=== PATIENT | male | born 1980 | race American Indian/Alaskan Native ===

== ENCOUNTER 2018-01-30 10:06 | Inpatient (IN) | payer OTHER ==
--- NOTE | 2018-01-30 11:08 | Cat Scan Report ---
HEAD CT WITHOUT CONTRAST INDICATION: Neurologic deficits less than 6 hours or symptoms present upon awakening. 98N. COMPARISON: None similar. FINDINGS: Noncontrast head CT demonstrates symmetric ventricles and sulci without acute or recent infarct, hemorrhage, mass effect or midline shift. No abnormal extra-axial fluid collections. Posterior fossa structures and basilar cisterns are within normal limits. Severe bilateral ethmoid with mild bilateral image maxillary, frontal and sphenoid sinus mucosal thickening. Clear temporal bone/mastoid air cells, the mastoid tips not well pneumatized. Intact calvarium. Normal scalp. Small radiopaque dental fillings. CONCLUSION: No acute intracranial CT abnormality with pansinusitis, as above. MRI is more sensitive for detection of acute infarct and may be useful for further evaluation in the setting of a focal neurologic deficit. I phoned the above results to Dr. Marquez in the ER, 10:55 AM, 01/30/2018. Thank you for the opportunity to participate in this patient's care.
[2018-01-30] MEDS ORDERED: NACL 0.9% 1000 ML 1,000 ML ONE (11:15)
[2018-01-30 11:25] LABS: Basophils % (Auto) 0.8 % (0.0-1.8); Eosinophils # (Auto) 0.7 K/mm3 (0.0-0.4); Eosinophils % (Auto) 14.7 % (0.0-4.3); Hematocrit 42.2 % (35.5-45.6); Hemoglobin 14.5 gm/dl (11.8-15.2); Lymphocytes # (Auto) 1.6 K/mm3 (1.2-5.4); Lymphocytes % (Auto) 32.2 % (13.4-35.0); Mean Corpuscular HGB Conc 34 % (32-34); Mean Corpuscular Hemoglobin 32 pg (28-32); Mean Corpuscular Volume 93 fl (84-94); Monocytes # (Auto) 0.7 K/mm3 (0.0-0.8); Monocytes % (Auto) 13.3 % (0.0-7.3); Platelet Count 247 K/mm3 (140-440); Red Blood Count 4.52 M/mm3 (3.65-5.03)
[2018-01-30] MEDS ORDERED: ACTIVASE ONE (11:25)
[2018-01-30 11:34] LABS: INR 1.03 (0.87-1.13)
[2018-01-30 11:35] LABS: Partial Thromboplastin Time 32.9 Sec. (24.2-36.6)
[2018-01-30 11:40] LABS: BUN/Creatinine Ratio 9; Blood Urea Nitrogen 8 mg/dL (9-20); Calcium 9.3 mg/dL (8.4-10.2); Hemolysis Index 11
[2018-01-30] MEDS ORDERED: K-DUR PO ONE (12:07)
--- NOTE | 2018-01-30 12:14 | Emergency Department Report ---
ED Neuro Deficit HPI - General Chief Complaint: Neuro Symptoms/Deficit Stated Complaint: LEFT ARM NUMBNESS Time Seen by Provider: 01/30/18 11:26 Source: patient, family Mode of arrival: Ambulatory Limitations: No Limitations - History of Present Illness Initial Comments: 37-year-old male arrives as a code stroke. His last known well time is listed as 945. He states that he had numbness to involve his entire left side of his body essentially perhaps sparing the forehead. He stated that he had been using "recreational drugs". He states that he bit down on his tongue and it felt numb. He stated he felt some left arm and left leg decreased sensation. He denied any weakness. The stroke nurse thought that his leg appeared shaky on movement and that as ataxia. The patient did not report any difficulty in walking or with his coordination to be. He did not complain of headache. He states the symptoms were improving by the time of my encounter. -: Sudden Location: left face, left arm, left leg Presenting Symptoms: Present: Weak/Paralyzed One Side (change in sensation) History of same: No Severity: mild, moderate Quality: numb (Toungue numbness and change in sensation left sides. Spared Forehead) Improves With: none Worsens With: none On Anticoagulants: No Context: other (cocaine abuse) Associated Symptoms: denies other symptoms Treatments Prior to Arrival: none - Related Data Home Medications: Previous Rx's Medication Instructions Recorded Last Taken Type Albuterol Sulfate [Ventolin HFA] 1 - 2 puff INHALATION Q4H PRN #1 10/22/13 Unknown Rx [email or web address] Allergies/Adverse Reactions: Allergies Allergy/AdvReac Type Severity Reaction Status Date / Time No Known Allergies Allergy Unverified 10/22/13 19:57 ED Review of Systems ROS: Stated complaint: LEFT ARM NUMBNESS Other details as noted in HPI Constitutional: denies: chills, fever Eyes: denies: eye pain, eye discharge, vision change ENT: denies: ear pain, throat pain Respiratory: denies: cough, shortness of breath, wheezing Cardiovascular: denies: chest pain, palpitations Endocrine: no symptoms reported Gastrointestinal: denies: abdominal pain, nausea, diarrhea Genitourinary: denies: urgency, dysuria Musculoskeletal: denies: back pain, joint swelling, arthralgia Skin: denies: rash, lesions Neurological: numbness. denies: headache, weakness, paresthesias Psychiatric: denies: anxiety, depression Hematological/Lymphatic: denies: easy bleeding, easy bruising ED Past Medical Hx - Past Medical History Previous Medical History?: Yes Hx Asthma: Yes Additional medical history: "blood clots in colon" - Surgical History Past Surgical History?: Yes Additional Surgical History: colonoscopy - Social History Smoking Status: Current Every Day Smoker Substance Use Type: Alcohol - Medications Home Medications: Home Medications Medication Instructions Recorded Confirmed Last Taken Type Albuterol Sulfate [Ventolin HFA] 1 - 2 puff INHALATION Q4H PRN #1 10/22/1301/30 Unknown Rx [email or web address] ED Neuro Physical Exam - General Limitations: No Limitations General appearance: alert, in no apparent distress Suspected Stroke: No (stroke is deemed very unlikely) - Head Head exam: Present: atraumatic, normocephalic - Eye Eye exam: Present: normal appearance. Absent: scleral icterus - ENT ENT exam: Present: mucous membranes moist - Neck Neck exam: Present: normal inspection. Absent: tenderness, meningismus - Respiratory Respiratory exam: Present: normal lung sounds bilaterally. Absent: respiratory distress - Cardiovascular Cardiovascular Exam: Present: regular rate, normal rhythm. Absent: systolic murmur, diastolic murmur, rubs, gallop - GI/Abdominal GI/Abdominal exam: Present: soft, normal bowel sounds. Absent: distended, tenderness, guarding, rebound, rigid - Rectal Rectal exam: Present: deferred - Extremities Exam Extremities exam: Present: normal inspection - Back Exam Back exam: Present: normal inspection - Neurological Exam Neurological exam: Present: alert, oriented X3, CN II-XII intact. Absent: motor sensory deficit - NIHSS Assessment Interval: Baseline 1a. Level of Consciousness: alert 1b. LOC Questions: answers correctly 1c. LOC Commands: performs tasks correctly 2. Best Gaze: normal 3. Visual: no visual loss 4. Facial Palsy: normal symmetrical movement 5b. Motor Arm Right: no drift 5a. Motor Arm Left: no drift 6a. Motor Leg Left: no drift 6b. Motor Leg Right: no drift 7. Limb Ataxia: absent 8. Sensory: normal (patient had no sensory loss. He had slight subjective fine touch testing difference left versus right side) 9. Best Language: no aphasia 10. Dysarthria: normal 11. Extinction/Inattention: no abnormality Total Score: 0 Stroke Severity: No Stroke Symptoms - Psychiatric Psychiatric exam: Present: normal affect, normal mood - Skin Skin exam: Present: warm, dry, intact, normal color. Absent: rash ED Course Vital Signs 01/30/18 01/30/18 01/30/18 10:27 10:45 11:00 Temperature 98.2 F 36.8 F L Pulse Rate 96 H 94 H 88 Respiratory 18 16 18 Rate Blood Pressure 117/79 121/88 Blood Pressure 121/88 [Right] O2 Sat by Pulse 99 99 99 Oximetry 01/30/18 01/30/18 01/30/18 11:45 13:00 14:00 Temperature Pulse Rate 89 83 70 Respiratory 19 16 17 Rate Blood Pressure 115/77 Blood Pressure 126/90 117/68 [Right] O2 Sat by Pulse 100 99 Oximetry 01/30/18 01/30/18 01/30/18 15:00 16:00 17:00 Temperature Pulse Rate 72 84 82 Respiratory 17 13 19 Rate Blood Pressure 128/82 118/75 119/62 Blood Pressure [Right] O2 Sat by Pulse 100 100 100 Oximetry 01/30/18 18:00 Temperature Pulse Rate 84 Respiratory 26 H Rate Blood Pressure 123/67 Blood Pressure [Right] O2 Sat by Pulse 99 Oximetry - Reevaluation(s) Reevaluation #1: I believe was entirely possible that the patient's numbness was secondary to the local anesthetic effect of cocaine. As far as his hemisensory symptoms, they were rapidly resolving at the time of my encounter. A CT of his head was negative. He is not a candidate for TPA based on improving subjective sensory symptoms with the actual tongue numbness as above indicated. He had an emergency MR studies which were negative. He was admitted to the hospital by Dr. Villarreal for further care and evaluation/observation. 01/30/18 19:58 - Lab Data Result diagrams: 01/30/18 Unknown 01/30/18 Unknown Lab Results 01/30/18 01/30/18 Range/Units 10:59 12:42 POC Glucose 86 (70-105) Urine Opiates Screen Presumptive negative Urine Methadone Screen Presumptive negative Ur Barbiturates Screen Presumptive negative Ur Phencyclidine Scrn Presumptive negative Ur Amphetamines Screen Presumptive negative U Benzodiazepines Scrn Presumptive negative Urine Cocaine Screen Presumptive positive U Marijuana (THC) Screen Presumptive negative Drugs of Abuse Note Disclamer - EKG Data -: EKG Interpreted by Sc EKG shows normal: sinus rhythm, axis, intervals, QRS complexes, ST-T waves Rate: normal Interpretation: no acute changes - Radiology Data Radiology results: report reviewed Radiology Impressions Echocardiogram 01/30/18 00:00 Transthoracic Echocardiogram Indication: Stroke BP: 117/68 HR: 68 Conclusions *Global left ventricular systolic function is normal. *The estimated ejection fraction is 50-55%. *Mild concentric left ventricular hypertrophy is observed. *There is mild mitral valve prolapse. *There is mild mitral regurgitation. *There is mild tricuspid regurgitation. Findings Left Ventricle: The left ventricular chamber size is normal. Mild concentric left ventricular hypertrophy is observed. Global left ventricular systolic function is normal. The estimated ejection fraction is 50-55%. Normal left ventricular diastolic filling is observed. Left Atrium: The left atrial chamber size is normal. Right Ventricle: The right ventricular cavity size is normal. The right ventricular global systolic function is normal. Right Atrium: The right atrial cavity size is normal. Aortic Valve: The aortic valve is trileaflet. The aortic valve leaflets are mildly thickened. There is trace of aortic regurgitation. There is no evidence of aortic stenosis. Mitral Valve: The mitral valve leaflets are mildly thickened. There is mild mitral valve prolapse. There is mild mitral regurgitation. There is no evidence of mitral stenosis. Tricuspid Valve: The tricuspid valve leaflets are normal. There is mild tricuspid regurgitation. No pulmonary hypertension is noted. Pulmonic Valve: The pulmonic valve appears normal. There is trace pulmonic regurgitation. Pericardium: There is no pericardial effusion. Aorta: There is no dilatation of the ascending aorta. There is no dilatation of the aortic root. Venous: The inferior vena cava appears normal in size. Contrast: Intravenous agitated saline contrast was used to assess intracardiac shunting. Measurements Chambers MM Name Value Normal Range Ao root diameter (MM) 2.7 cm (2 - 3.7) Chambers 2D Name Value Normal Range RVIDd (AP) 2D 2.99 cm (0.9 - 2.6) IVSd (2D) 0.77 cm (0.6 - 1.1) LVPWd (2D) 0.78 cm (0.6 - 1.1) IVS:LVPW ratio (2D) 0.99 ratio - LVIDd (2D) 4.4 cm (3.7 - 5.6) LVIDs (2D) 2.96 cm (2 - 3.8) LV FS (Teichholz) (2D) 32.7 % - LV FS (cube) (2D) 32.7 % - EF Teichholz (2D) 61.3 % - Ao root diameter (2D) 3.3 cm (2 - 3.7) LA dimension (AP) 2D 2.7 cm (1.9 - 4) LA:Ao ratio (2D) 0.82 ratio - Volumes/Mass Name Value Normal Range LA ESV SP 4CH (MOD) 22 ml - LA ESV SP 2CH (MOD) 35 ml - LA ESV BP (MOD) 30 ml - LA ESV BP (MOD) index 15.3 ml/m2 - LV EDV SP 4CH (MOD) 52 ml - LV ESV SP 4CH (MOD) 22 ml - EF SP 4CH (MOD) 58 % - LV EDV SP 2CH (MOD) 57 ml - LV ESV SP 2CH (MOD) 25 ml - EF SP 2CH (MOD) 56 % - LV EDV BP 55 ml - LV ESV BP 24 ml - BP EF (MOD) 56 % - Diastolic/Systolic Function Name Value Normal Range MV E-wave Vmax 0.67 m/sec - MV A-wave Vmax 0.46 m/sec - MV E:A ratio 1.5 ratio - LV septal e' Vmax 0.11 m/sec - LV lateral e' Vmax 0.13 m/sec - LV E:e' septal ratio 6.3 ratio - LV E:e' lateral ratio 5.1 ratio - Aortic Valve Name Value Normal Range AV VTI 28.3 cm - AV mean gradient 3 mmHg - LVOT diameter 2 cm - LVOT VTI 24.6 cm - LVOT mean gradient 3 mmHg - SV LVOT 77 ml - JEANNETTE (continuity VTI) 2.73 cm2 - Tricuspid Valve Name Value Normal Range TR Vmax 1.85 m/sec - TR peak gradient 14 mmHg - RAP 3 mmHg - RVSP 17 mmHg - Pulmonic Valve/Qp:Qs Name Value Normal Range PV Vmax 0.75 m/sec - PV peak gradient 2 mmHg - OR end-diastolic Vmax 0.91 m/sec - PV acceleration time 183 msec - - Thrombolytic Inclusion/Exclusion Thrombolytic Contraindications: Rapidily Improving s/s Critical care attestation.: If time is entered above; I have spent that time in minutes in the direct care of this critically ill patient, excluding procedure time. 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
[2018-01-30 12:28] LABS: Creatine Kinase MB 4.6 ng/mL (0.0-4.0)
--- NOTE | 2018-01-30 12:40 | Magnetic Resonance Report ---
MRI BRAIN WITHOUT CONTRAST INDICATION: Stroke. COMPARISON: Head CT from earlier today. FINDINGS: Noncontrast multiplanar and multisequence MRI of the brain demonstrates normal ventricles and sulci without acute infarct, hemorrhage, mass effect or midline shift. No abnormal extra-axial masses or fluid collections. Normal major intracranial vascular flow voids. Normal posterior fossa structures with symmetric seventh and eighth nerve complexes. Symmetric, grossly unremarkable eye globes. Normal midline structures without evidence of Chiari malformation. Mild rightward nasal septal bowing. Extensive bilateral ethmoid and mild bilateral imaged maxillary, sphenoid and frontal sinus mucosal thickening noted. Clear mastoid air cells with their tips not well pneumatized. CONCLUSION: No acute intracranial MRI abnormality with pansinusitis again noted, as described. Thank you for the opportunity to participate in this patient's care.
--- NOTE | 2018-01-30 12:41 | Magnetic Resonance Report ---
MRA HEAD WITHOUT CONTRAST INDICATION: Stroke. COMPARISON: None similar. FINDINGS: MRA of the head performed without intravenous contrast and demonstrates no evidence of flow-limiting stenosis, occlusion or vascular malformation. Please note that detection of aneurysms less than 5 mm is limited on this exam. CONCLUSION: Normal study of the [place]. Thank you for the opportunity to participate in this patient's care.
--- NOTE | 2018-01-30 12:59 | History and Physical Report ---
<CESIA BLUNT - Last Filed: 01/30/18 16:39> Past History Past Medical History: other (asthma) Past Surgical History: No surgical history, Other (reviewed) Social history: smoking Medications and Allergies Allergies Allergy/AdvReac Type Severity Reaction Status Date / Time No Known Allergies Allergy Unverified 10/22/13 19:57 Home Medications Medication Instructions Recorded Confirmed Last Taken Type Albuterol Sulfate [Ventolin HFA] 1 - 2 puff INHALATION Q4H PRN #1 10/22/1301/30 Unknown Rx [email or web address] Active Meds: Active Medications Aspirin (Aspirin) 325 mg PO QDAY JOHN Sodium Chloride (Sodium Chloride Flush Syringe 10 Ml) 10 ml IV PRN PRN PRN Reason: LINE FLUSH Exam - Constitutional Vitals: Temp Pulse Resp BP Pulse Ox 36.8 F L 83 16 117/68 100 01/30/18 10:45 01/30/18 13:00 01/30/18 13:00 01/30/18 13:00 01/30/18 13:00 Results - Labs CBC & Chem 7: 01/30/18 Unknown 01/30/18 Unknown Labs: Abnormal lab results 01/30/18 01/30/18 01/30/18 Range/Units Unknown Unknown Unknown RDW 13.0 L (13.2-15.2) % [place] % (Auto) 13.3 H (0.0-7.3) % Eos % (Auto) 14.7 H (0.0-4.3) % Eos # 0.7 H (0.0-0.4) K/mm3 Seg Neutrophils % 39.0 L (40.0-70.0) % Sodium 136 L (137-145) mmol/L Potassium 3.4 L (3.6-5.0) mmol/L Chloride 96.9 L (98-107) mmol/L BUN 8 L (9-20) mg/dL Total Creatine Kinase 970 H (55-170) units/L CK-MB (CK-2) 4.6 H (0.0-4.0) ng/mL <BETSY MOY - Last Filed: 01/30/18 16:49> History of Present Illness Chief complaint: Im weak on my left side History of present illness: 37 YO Male with Asthma, Nicotine Dependence presents to ED for evaluation. Pt states that he experienced numbness on the left side of his body. Pt was in his usual state of health at 0945 hrs. Pt was subsequently transported to [facility] by his family. Pt seen and evaluated in ED and a code stroke was called. Pt denies fever, chills, CP, Palpitations, NVD, Syncope, BRBPR, Unintentional weight loss,night sweats, bone pain. Pt admitted to telemetry and initiated on stroke protocol. Past History Past Medical History: other Past Surgical History: No surgical history, Other Social history: smoking Review of Systems Constitutional: no weight loss, no weight gain, no fever, no chills Ears, nose, mouth and throat: no ear pain, no ear discharge, no tinnitis, no decreased hearing, no nose pain, no nasal congestion, no nasal discharge Cardiovascular: no chest pain, no orthopnea, no palpitations, no rapid/ irregular heart beat, no edema, no syncope, no lightheadedness Respiratory: no cough, no cough with sputum, no excessive sputum, no hemoptysis , no shortness of breath Gastrointestinal: no abdominal pain, no nausea, no vomiting, no diarrhea, no constipation Genitourinary Male: no dysuria, no hematuria, no flank pain, no discharge, no urinary frequency, no urinary hesitancy Rectal: no pain, no incontinence, no bleeding Musculoskeletal: no neck stiffness, no neck pain, no shooting arm pain, no arm numbness/tingling, no low back pain, no shooting leg pain Integumentary: no rash, no pruritis, no redness, no sores, no wounds, no jaundice Neurological: weakness, change in speech, no seizures, no syncope, no tremors, no ataxia Psychiatric: no anxiety, no memory loss, no change in sleep habits, no sleep disturbances, no insomnia, no hypersomnia, no change in appetite, no change in libido Endocrine: no cold intolerance, no heat intolerance, no polyphagia, no excessive thirst, no polydipsia, no polyuria, no nocturia Hematologic/Lymphatic: no easy bruising, no easy bleeding, no lymphadenopathy, no lymphedema Allergic/Immunologic: no urticaria, no allergic rhinitis, no wheezing, no persistent infections, no anaphylaxis, no angioedema Exam - Constitutional Vitals: Temp Pulse Resp BP Pulse Ox 36.8 F L 89 19 126/90 99 01/30/18 10:45 01/30/18 11:45 01/30/18 11:45 01/30/18 11:45 01/30/18 11:00 General appearance: Present: no acute distress, well-nourished - EENT Eyes: Present: PERRL ENT: hearing intact, clear oral mucosa - Neck Neck: Present: supple, normal ROM - Respiratory Respiratory effort: normal Respiratory: bilateral: CTA - Cardiovascular Heart Sounds: Present: S1 & S2. Absent: rub, click - Extremities Extremities: pulses symmetrical, No edema Peripheral Pulses: within normal limits - Abdominal General gastrointestinal: Present: soft, non-tender, non-distended, normal bowel sounds Male genitourinary: Present: normal - Integumentary Integumentary: Present: clear, warm, dry - Musculoskeletal Musculoskeletal: gait normal, strength equal bilaterally - Psychiatric Psychiatric: appropriate mood/affect, intact judgment & insight - Neurologic Neurologic: CNII-XII intact, moves all extremities Results - Labs CBC & Chem 7: 01/30/18 Unknown 01/30/18 Unknown Labs: Abnormal lab results 01/30/18 01/30/18 01/30/18 Range/Units Unknown Unknown Unknown RDW 13.0 L (13.2-15.2) % [place] % (Auto) 13.3 H (0.0-7.3) % Eos % (Auto) 14.7 H (0.0-4.3) % Eos # 0.7 H (0.0-0.4) K/mm3 Seg Neutrophils % 39.0 L (40.0-70.0) % Sodium 136 L (137-145) mmol/L Potassium 3.4 L (3.6-5.0) mmol/L Chloride 96.9 L (98-107) mmol/L BUN 8 L (9-20) mg/dL CK-MB (CK-2) 4.6 H (0.0-4.0) ng/mL Assessment and Plan - Patient Problems (1) CVA (cerebral vascular accident) Current Visit: Yes Status: Acute Qualifiers: Laterality of affected vessel: unspecified Plan to address problem: Stroke Protocol: CT Head, MRI Brain, MRA Brain, Echo, Carotid Doppler, PT/OT/ Speech, antiplatelet therapy (2) Cocaine abuse Current Visit: Yes Status: Acute Plan to address problem: Pt counseled regarding cessation. (3) DVT prophylaxis Current Visit: Yes Status: Acute Plan to address problem: scd to BLE while in bed
[2018-01-30 13:17] LABS: Amphetamine Screen,Urine PRESUMPTIVE NEGATIVE; Benzodiazepines Screen,Urine PRESUMPTIVE NEGATIVE; Cannabinoid Screen,Urine PRESUMPTIVE NEGATIVE; Methadone Screen,Urine PRESUMPTIVE NEGATIVE; Opiate Screen,Urine PRESUMPTIVE NEGATIVE
--- NOTE | 2018-01-30 13:35 | XRay Report ---
CHEST ONE VIEW INDICATION: Hypertension. COMPARISON: 11/20/2011. FINDINGS: Portable, single, frontal chest radiograph demonstrates normal cardiomediastinal silhouette. Clear, well-expanded lungs. Unremarkable bones. Extrinsic EKG leads. CONCLUSION: No acute disease in the chest. Thank you for the opportunity to participate in this patient's care.
[2018-01-30 13:46] LABS: Cocaine Screen,Urine PRESUMPTIVE POSITIVE
[2018-01-30] MEDS ORDERED: SODIUM CHLORIDE FLUSH SYRINGE 10 ML IV PRN ×2 (14:06→17:20)
[2018-01-30] MEDS ORDERED: REGLAN PO PRN (17:20)
[2018-01-30] MEDS ORDERED: DULCOLAX PR PRN (17:20)
[2018-01-30] MEDS ORDERED: ZOFRAN IV PRN (17:20)
[2018-01-30] MEDS ORDERED: PHENERGAN PR PRN (17:20)
[2018-01-30] MEDS ORDERED: MILK OF MAGNESIA PO PRN (17:20)
[2018-01-30] MEDS ORDERED: PROVENTIL IH PRN (20:04)
[2018-01-31 07:03] LABS: Chol/HDL Ratio 2.07 %
[2018-01-31] MEDS: ASPIRIN PO SCH (10:57)
--- NOTE | 2018-01-31 11:17 | Progress Note ---
Assessment and Plan Assessment and plan: --Neuro symptoms/acute CVA Neuro workup is in progress, follow EEG neurology consult Physical therapy occupational therapy rehabilitation Aspirin and statin --Ongoing tobacco use; smoking cessation counseling done Advised nicotine patch as needed --Recreational drug use; cocaine Counseling done strongly advised to quit recreational drug patient verbalized understanding --History of rectal bleeding-; Nose the monitor H&H, GI consult for possible endoscopy --DVT prophylaxis; SCDs Patient's condition treatment plan discussed in detail with the patient and his mother at the bedside Also discussed with the nurse History Interval history: Patient seen and examined medical records reviewed Feels slightly better since admission still complains of left upper extremity weakness Neuro workup is in progress And also complains of rectal bleeding for the last couple of days, Complaints of generalized weakness Alert awake oriented 3 Not in acute distress Vital signs reviewed Hospitalist Physical - Constitutional Vitals: Temp Pulse Resp BP Pulse Ox 98.1 F 86 20 118/82 99 01/31/18 08:21 01/31/18 10:00 01/31/18 08:21 01/31/18 08:21 01/31/18 08:21 General appearance: Present: no acute distress, well-nourished - EENT Eyes: Present: PERRL, EOM intact - Neck Neck: Present: supple, normal ROM - Respiratory Respiratory effort: normal Respiratory: negative: rales, rhonchi, wheezing - Cardiovascular Rhythm: regular Heart Sounds: Present: S1 & S2 - Extremities Extremities: no ischemia, No edema - Abdominal General gastrointestinal: soft, non-tender, non-distended, normal bowel sounds - Integumentary Integumentary: Present: clear, warm - Psychiatric Psychiatric: appropriate mood/affect, cooperative - Neurologic Neurologic: CNII-XII intact, other (minimal weakness lt upper extremity) Results - Labs CBC & Chem 7: 01/30/18 Unknown 01/30/18 Unknown Labs: Laboratory Last Values WBC 5.0 K/mm3 (4.5-11.0) 01/30/18 Unknown RBC 4.52 M/mm3 (3.65-5.03) 01/30/18 Unknown Hgb 14.5 gm/dl (11.8-15.2) 01/30/18 Unknown Hct 42.2 % (35.5-45.6) 01/30/18 Unknown MCV 93 fl (84-94) 01/30/18 Unknown MCH 32 pg (28-32) 01/30/18 Unknown MCHC 34 % (32-34) 01/30/18 Unknown RDW 13.0 % (13.2-15.2) L 01/30/18 Unknown Plt Count 247 K/mm3 (140-440) 01/30/18 Unknown Lymph % (Auto) 32.2 % (13.4-35.0) 01/30/18 Unknown [place] % (Auto) 13.3 % (0.0-7.3) H 01/30/18 Unknown Eos % (Auto) 14.7 % (0.0-4.3) H 01/30/18 Unknown Baso % (Auto) 0.8 % (0.0-1.8) 01/30/18 Unknown Lymph # 1.6 K/mm3 (1.2-5.4) 01/30/18 Unknown [place] # 0.7 K/mm3 (0.0-0.8) 01/30/18 Unknown Eos # 0.7 K/mm3 (0.0-0.4) H 01/30/18 Unknown Baso # 0.0 K/mm3 (0.0-0.1) 01/30/18 Unknown Seg Neutrophils % 39.0 % (40.0-70.0) L 01/30/18 Unknown Seg Neutrophils # 1.9 K/mm3 (1.8-7.7) 01/30/18 Unknown PT 14.0 Sec. (12.2-14.9) 01/30/18 Unknown INR 1.03 (0.87-1.13) 01/30/18 Unknown APTT 32.9 Sec. (24.2-36.6) 01/30/18 Unknown Thrombin Time 17.1 Sec. (15.1-19.6) 01/30/18 Unknown Sodium 136 mmol/L (137-145) L 01/30/18 Unknown Potassium 3.4 mmol/L (3.6-5.0) L 01/30/18 Unknown Chloride 96.9 mmol/L (98-107) L 01/30/18 Unknown Carbon Dioxide 26 mmol/L (22-30) 01/30/18 Unknown Anion Gap 17 mmol/L 01/30/18 Unknown BUN 8 mg/dL (9-20) L 01/30/18 Unknown Creatinine 0.9 mg/dL (0.8-1.5) 01/30/18 Unknown Estimated GFR > 60 ml/min 01/30/18 Unknown BUN/Creatinine Ratio 9 % 01/30/18 Unknown Glucose 84 mg/dL (75-100) 01/30/18 Unknown POC Glucose 86 (70-105) 01/30/18 10:59 Calcium 9.3 mg/dL (8.4-10.2) 01/30/18 Unknown Magnesium 1.90 mg/dL (1.7-2.3) 01/30/18 Unknown Total Creatine Kinase 970 units/L (55-170) H 01/30/18 Unknown CK-MB (CK-2) 4.6 ng/mL (0.0-4.0) H 01/30/18 Unknown CK-MB (CK-2) Rel Index 0.4 (0-4) 01/30/18 Unknown Troponin T < 0.010 ng/mL (0.00-0.029) 01/30/18 Unknown NT-Pro-B Natriuret Pep 19.03 pg/mL (0-450) 01/30/18 Unknown Triglycerides 71 mg/dL (2-149) 01/31/18 05:38 Cholesterol 141 mg/dL (50-199) 01/31/18 05:38 LDL Cholesterol Direct 79 mg/dL (50-130) 01/31/18 05:38 HDL Cholesterol 68 mg/dL (40-59) H 01/31/18 05:38 Cholesterol/HDL Ratio 2.07 % 01/31/18 05:38 Urine Opiates Screen Presumptive negative 01/30/18 12:42 Urine Methadone Screen Presumptive negative 01/30/18 12:42 Ur Barbiturates Screen Presumptive negative 01/30/18 12:42 Ur Phencyclidine Scrn Presumptive negative 01/30/18 12:42 Ur Amphetamines Screen Presumptive negative 01/30/18 12:42 U Benzodiazepines Scrn Presumptive negative 01/30/18 12:42 Urine Cocaine Screen Presumptive positive 01/30/18 12:42 U Marijuana (THC) Screen Presumptive negative 01/30/18 12:42 Drugs of Abuse Note Disclamer 01/30/18 12:42
[2018-01-31] MEDS ORDERED: K-DUR PO NR (12:00)
--- NOTE | 2018-01-31 13:25 | Consultation ---
History of Present Illness Consult date: 02/07/18 Requesting physician: CRISTIANE PAZ Reason for Consult: Acute CVA. Chief complaint: Left side weakness. History of present illness: 37 years old right handed male with a past medical history of asthma, presented for left side numbness, may be also left side weakness. He was admitted for acute CVA. He was out of windows for IV TPA or service mechanic thrombectomy. He still has these symptoms. He denied headache. He denied recently neck injury. He denied off balance, incontinency or loss control bowel. His fiance noted that he had left leg twitching when sleeping. Past History Past Medical History: other (asthema.) Past Surgical History: No surgical history, Other Social history: smoking, other (denied illicit drugs, drink beer daily.) Medications and Allergies Allergies Allergy/AdvReac Type Severity Reaction Status Date / Time No Known Allergies Allergy Unverified 10/22/13 19:57 Home Medications Medication Instructions Recorded Confirmed Last Taken Type Albuterol Sulfate [Ventolin HFA] 1 - 2 puff INHALATION Q4H PRN #1 10/22/1301/30 Unknown Rx [email or web address] Active Meds: Active Medications Albuterol (Proventil) 2.5 mg IH Q4HRT PRN PRN Reason: Shortness Of Breath Last Admin: 01/30/18 20:32 Dose: 2.5 mg Amoxicillin/Clavulanate Potassium (Augmentin 875 Mg) 1 each PO Q12HR [facility] Aspirin (Aspirin) 325 mg PO QDAY [facility] Last Admin: 01/31/18 10:57 Dose: Not Given Atorvastatin Calcium (Lipitor) 20 mg PO QHS JOHN Bisacodyl (Dulcolax) 10 mg VT QDAY PRN PRN Reason: Constipation Magnesium Hydroxide (Milk Of Magnesia) 30 ml PO Q4H PRN PRN Reason: Constipation Metoclopramide HCl (Reglan) 10 mg PO Q6H PRN PRN Reason: Nausea And Vomiting Ondansetron HCl (Zofran) 4 mg IV Q8H PRN PRN Reason: N/V unrelieved by Reglan Promethazine HCl (Phenergan) 25 mg VT Q6H PRN PRN Reason: Nausea And Vomiting Sodium Chloride (Sodium Chloride Flush Syringe 10 Ml) 10 ml IV PRN PRN PRN Reason: LINE FLUSH Sodium Chloride (Sodium Chloride Flush Syringe 10 Ml) 10 ml IV PRN PRN PRN Reason: LINE FLUSH Review of Systems All systems: negative (left side numbness and weakness.) Physical Examination - Vital Signs Vital Signs: Vital Signs Temp Pulse Resp BP Pulse Ox 98.2 F 96 H 18 117/79 99 01/30/18 10:27 01/30/18 10:27 01/30/18 10:27 01/30/18 10:27 01/30/18 10:27 - Constitutional General appearance: comfortable - EENT EENT: Present: ATNC, PERRL - Respiratory Respiratory: Present: lungs clear, normal breath sounds - Cardiovascular Cardiovascular: Present: regular rate, no murmurs Extremities: Present: no peripheral edema bilatateraly, no clubbing, cyanosis - Gastrointestinal Gastrointestinal: Present: soft, non-tender - Integumentary Integumentary: Present: normal - Neurologic Cranial nerve examination: PERRL, EOMI, V1/V2/V3 grossly intact, intact Speech examination: intact Sensorimotor examination: intact, other Detailed sensory examination: other (left side decreased senations.) Reflexes: 2+: ankle, bicep, knee, tricep - Assessment Assessment Interval: Baseline - Level of Consciousness 1a. Level of Consciousness: alert - LOC Questions 1b. LOC Questions: answers correctly - LOC Command 1c. LOC Commands: performs tasks correctly - Best Gaze 2. Best Gaze: normal - Visual 3. Visual: no visual loss - Facial Palsy 4. Facial Palsy: normal symmetrical movement - Motor Arm 5b. Motor Arm Right: no drift - Motor Leg 6a. Motor Leg Left: no drift - Limb Ataxia 7. Limb Ataxia: absent - Sensory 8. Sensory: normal (patient had no sensory loss. He had slight subjective fine touch testing difference left versus right side) - Best Language 9. Best Language: no aphasia - Dysarthria 10. Dysarthria: normal - Extinction and Inattention 11. Extinction/Inattention: no abnormality Results - Laboratory Findings CBC and BMP: 01/30/18 Unknown 01/30/18 Unknown Abnormal Lab Findings: Abnormal Labs 01/30/18 01/30/18 01/30/18 Unknown Unknown Unknown RDW 13.0 L [place] % (Auto) 13.3 H Eos % (Auto) 14.7 H Eos # 0.7 H Seg Neutrophils % 39.0 L Sodium 136 L Potassium 3.4 L Chloride 96.9 L BUN 8 L Total Creatine Kinase 970 H CK-MB (CK-2) 4.6 H HDL Cholesterol 01/31/18 05:38 RDW [place] % (Auto) Eos % (Auto) Eos # Seg Neutrophils % Sodium Potassium Chloride BUN Total Creatine Kinase CK-MB (CK-2) HDL Cholesterol 68 H Assessment and Plan 1. Acute onset left side weakness and numbness. Brain MRI without contrast and brain MRA negative. If he has CVA, NIHSS 3. 2. Out windows for IV TPA or service mechanic thrombecoty. B12, UDS, lipid profile, TSH. Echo, EF 50-55%. 3. Cervical DDD as differential. Cervical MRI without contrast. 4. His fiance noted that he had left leg twitching. Seizure as differential. EEG. 5. OT/PT, rehab and speech pathology. 6. Plan discussed with him and his mother at bed side. 7. Will follow up with you. 8. If D/C, F/U with neurology in 4-6 months.
[2018-01-31] MEDS: AUGMENTIN 875 MG PO SCH ×2 (14:02→22:18)
--- NOTE | 2018-01-31 22:01 | Consultation ---
Referring Physician: Lizzie Becker MD INDICATION: Rectal bleeding. HISTORY OF PRESENT ILLNESS: The patient is a 37-year-old black male with history of asthma, now being seen by GI for rectal bleeding. The patient presented and has been evaluated for CVA like symptoms. The patient reports a vague history of 2-3 years ago, being told he had colitis versus hemorrhoids when he had rectal bleeding. He reports that he has had intermittent rectal bleeding, but worse over the last 1-2 weeks with bright red blood with occasional clots. He reports he has not seen a physician about this since 2-3 years ago. Denies any family history of colon cancer, but reports a vague family history of IBD. Denies any other specific GI problems or complaints. Denies any nausea, vomiting, heartburn, reflux, and ingestion. Denies any current diarrhea or constipation. PAST MEDICAL HISTORY: Asthma. MEDICATIONS: See chart. ALLERGIES: No known drug allergies. SOCIAL HISTORY: Reports social alcohol, positive cigarette positive cocaine use. FAMILY HISTORY: Negative for colon cancer, IBD, and liver disease. REVIEW OF SYSTEMS: GENERAL: Reports mild weakness. HEENT: No visual complaints or tinnitus. PULMONARY: No shortness of breath. CARDIOVASCULAR: No chest pain. GASTROINTESTINAL: Reports rectal bleeding. All points of 13-point review of systems are otherwise negative except for some left sided weakness. PHYSICAL EXAMINATION: VITAL SIGNS: Temperature 98.4, pulse 90_, respirations 20, blood pressure 123/55. GENERAL: Fairly nourished black male in no acute distress. HEENT: Pupils equal, round and reactive. PULMONARY: Clear to auscultation bilaterally. CARDIOVASCULAR: Regular rhythm. Normal S1, S2. ABDOMEN: Positive bowel sounds, soft. SKIN: No obvious rashes. EXTREMITIES: Left-sided extremities, mild weakness. LABORATORY DATA: Pertinent for white count of 5, hemoglobin and hematocrit of 14.5 and 42.2, platelet count of 247. Coags within normal limits. Chem-7 within normal limits except for sodium of 136. LFTs within normal limits. ASSESSMENT AND PLAN: A 37-year-old male presents with possible cerebrovascular accident, now reports vague history of 2 years ago, being told he had hemorrhoids versus colitis and now with intermittent rectal bleeding, worse over the last couple of weeks. The patient's hemoglobin and hematocrit are stable at this time. The patient has been evaluated for CVA. Symptoms may be related to hemorrhoids and less likely colitis, but possible. Given the patient's current workup for CVA and a stable H and H, we would take a more conservative approach. PLAN: 1. Follow hematocrit and transfuse as needed. 2. CVA, management per primary team. 3. We will consider colonoscopy, more likely as an outpatient, but consider as an inpatient based on progress. 4. We will follow. [facility]# [id number] [facility]ENTER[facility]i
--- NOTE | 2018-02-01 09:39 | Gastroenterology Progress Note ---
Assessment and Plan 1.rectal bleeding 2.neuro symptoms/acute CVA- MRI negative- management per neurology -H/H stable -no active signs of bleeding overnight or this am -Patient with h/o colitis vs hemorrhoids 2-3 years ago, now with c/o intermittent rectal bleeding -etiology- most likely hemorrhoid, less likely colitis -clinically, pt is stable w/o abd pain or N/V- tolerating diet -no plans for a colonoscopy at this time unless overt bleeding develops -recommend patient follow up as an outpatient for a colonoscopy -okay to be d/c per GI standpoint standpoint with clinic f/u in 1-2 weeks -will sign off, please call if needed Subjective Date of service: 02/01/18 Principal diagnosis: rectal bleeding Interval history: No active signs of bleeding overnight or this am. Denies abd pain or N/V. Tolerating diet. Objective - Constitutional Vitals: Temp Pulse Resp BP Pulse Ox 97.6 F 74 18 117/77 95 02/01/18 07:59 02/01/18 07:59 02/01/18 07:59 02/01/18 07:59 02/01/18 07:59 General appearance: no acute distress - Respiratory Respiratory: bilateral: CTA - Cardiovascular Rhythm: regular Heart Sounds: Present: S1 & S2 - Gastrointestinal General gastrointestinal: Present: soft, non-tender, non-distended, normal bowel sounds - Neurologic Neurological: alert and oriented x3 - Labs CBC & Chem 7: 01/30/18 Unknown 01/30/18 Unknown
--- NOTE | 2018-02-01 11:00 | Progress Note ---
Assessment and Plan 1. Acute onset left side weakness and numbness. Brain MRI without contrast and brain MRA negative. If he has CVA, NIHSS 3. 2. Dislipidemia. Statin. 3. Echo, EF 50-55%. Carotid Doppler. 4. Cervical DDD as differential. Cervical MRI without contrast. 5. His fiance noted that he had left leg twitching. Seizure as differential. EEG. 6. OT/PT, rehab and speech pathology. 7. Plan discussed with him and his mother at bed side. 8. Will follow up with you. 9. If D/C, F/U with neurology in 4-6 months. Subjective Date of service: 02/01/18 Principal diagnosis: left side weakness. Interval history: Still has left side weakness. Objective - Vital Sign Vital Signs - 12hr 01/31/18 02/01/18 23:31 07:59 Temperature 97.7 F 97.6 F Pulse Rate 78 74 Respiratory 20 18 Rate Blood Pressure 108/73 117/77 O2 Sat by Pulse 96 95 Oximetry - General Apperance Constitutional: comfortable - EENT EENT: PERRL, mucous membranes moist - Respiratory Respiratory: lungs clear, no respiratory distress - Cardiovascular Cardiovascular: regular rate, no murmurs Extremities: no peripheral edema bilat, no clubbing, cyanosis - Gastrointestinal Gastrointestinal: soft, non-tender - Integumentary Integumentary: normal - Neurologic Cranial nerve examination: PERRL, EOMI, intact Speech examination: intact Detailed motor examination: other (Left side 4/5, rest 5/5.) Detailed sensory examination: intact Reflex and gait examination: normal gait Reflexes: 2+: ankle, bicep, knee, tricep - Laboratory Findings CBC and BMP: 01/30/18 Unknown 01/30/18 Unknown Abnormal Lab Findings: Abnormal Labs 01/30/18 01/30/18 01/30/18 Unknown Unknown Unknown RDW 13.0 L [place] % (Auto) 13.3 H Eos % (Auto) 14.7 H Eos # 0.7 H Seg Neutrophils % 39.0 L Sodium 136 L Potassium 3.4 L Chloride 96.9 L BUN 8 L Total Creatine Kinase 970 H CK-MB (CK-2) 4.6 H HDL Cholesterol 01/31/18 05:38 RDW [place] % (Auto) Eos % (Auto) Eos # Seg Neutrophils % Sodium Potassium Chloride BUN Total Creatine Kinase CK-MB (CK-2) HDL Cholesterol 68 H
[2018-02-01] MEDS: ASPIRIN PO SCH (11:52)
[2018-02-01] MEDS: AUGMENTIN 875 MG PO SCH ×2 (11:52→22:07)
--- NOTE | 2018-02-01 14:34 | Progress Note ---
Assessment and Plan Assessment and plan: --Neuro symptoms/possible acute CVA not candidate for TPA or thrombectomy Neuro workup is in progress, follow EEG, CT cervical spine Physical therapy occupational therapy rehabilitation Aspirin and statin --Dyslipidemia; LDL more than 70, low-dose statin Per CVA protocol --Ongoing tobacco use; smoking cessation counseling done Advised nicotine patch as needed --Recreational drug use; cocaine Counseling done strongly advised to quit recreational drug patient verbalized understanding --History of rectal bleeding-; Nose the monitor H&H, GI consult for possible endoscopy --DVT prophylaxis; SCDs Follow CT cervical spine and EEG, Possible discharge in 1-2 days if stable History Interval history: Patient Seen and examined medical records reviewed Feels slightly better No neurological symptoms, neuro workup is in progress Neurology evaluation and recommendations noted and appreciated CT neck, EEG pending Alert awake oriented 3 Vital signs reviewed Hospitalist Physical - Constitutional Vitals: Temp Pulse Resp BP Pulse Ox 97.6 F 74 18 117/77 95 02/01/18 07:59 02/01/18 07:59 02/01/18 07:59 02/01/18 07:59 02/01/18 07:59 General appearance: Present: no acute distress, well-nourished - EENT Eyes: Present: PERRL, EOM intact - Neck Neck: Present: supple, normal ROM - Respiratory Respiratory effort: normal Respiratory: negative: rales, rhonchi, wheezing - Cardiovascular Rhythm: regular Heart Sounds: Present: S1 & S2 - Extremities Extremities: no ischemia, No edema Peripheral Pulses: within normal limits - Abdominal General gastrointestinal: soft, non-tender, non-distended, normal bowel sounds - Integumentary Integumentary: Present: clear, warm - Psychiatric Psychiatric: appropriate mood/affect, cooperative - Neurologic Neurologic: CNII-XII intact, moves all extremities Results - Labs CBC & Chem 7: 01/30/18 Unknown 01/30/18 Unknown Labs: Laboratory Last Values WBC 5.0 K/mm3 (4.5-11.0) 01/30/18 Unknown RBC 4.52 M/mm3 (3.65-5.03) 01/30/18 Unknown Hgb 14.5 gm/dl (11.8-15.2) 01/30/18 Unknown Hct 42.2 % (35.5-45.6) 01/30/18 Unknown MCV 93 fl (84-94) 01/30/18 Unknown MCH 32 pg (28-32) 01/30/18 Unknown MCHC 34 % (32-34) 01/30/18 Unknown RDW 13.0 % (13.2-15.2) L 01/30/18 Unknown Plt Count 247 K/mm3 (140-440) 01/30/18 Unknown Lymph % (Auto) 32.2 % (13.4-35.0) 01/30/18 Unknown [place] % (Auto) 13.3 % (0.0-7.3) H 01/30/18 Unknown Eos % (Auto) 14.7 % (0.0-4.3) H 01/30/18 Unknown Baso % (Auto) 0.8 % (0.0-1.8) 01/30/18 Unknown Lymph # 1.6 K/mm3 (1.2-5.4) 01/30/18 Unknown [place] # 0.7 K/mm3 (0.0-0.8) 01/30/18 Unknown Eos # 0.7 K/mm3 (0.0-0.4) H 01/30/18 Unknown Baso # 0.0 K/mm3 (0.0-0.1) 01/30/18 Unknown Seg Neutrophils % 39.0 % (40.0-70.0) L 01/30/18 Unknown Seg Neutrophils # 1.9 K/mm3 (1.8-7.7) 01/30/18 Unknown PT 14.0 Sec. (12.2-14.9) 01/30/18 Unknown INR 1.03 (0.87-1.13) 01/30/18 Unknown APTT 32.9 Sec. (24.2-36.6) 01/30/18 Unknown Thrombin Time 17.1 Sec. (15.1-19.6) 01/30/18 Unknown Sodium 136 mmol/L (137-145) L 01/30/18 Unknown Potassium 3.4 mmol/L (3.6-5.0) L 01/30/18 Unknown Chloride 96.9 mmol/L (98-107) L 01/30/18 Unknown Carbon Dioxide 26 mmol/L (22-30) 01/30/18 Unknown Anion Gap 17 mmol/L 01/30/18 Unknown BUN 8 mg/dL (9-20) L 01/30/18 Unknown Creatinine 0.9 mg/dL (0.8-1.5) 01/30/18 Unknown Estimated GFR > 60 ml/min 01/30/18 Unknown BUN/Creatinine Ratio 9 % 01/30/18 Unknown Glucose 84 mg/dL (75-100) 01/30/18 Unknown POC Glucose 86 (70-105) 01/30/18 10:59 Calcium 9.3 mg/dL (8.4-10.2) 01/30/18 Unknown Magnesium 1.90 mg/dL (1.7-2.3) 01/30/18 Unknown Total Creatine Kinase 970 units/L (55-170) H 01/30/18 Unknown CK-MB (CK-2) 4.6 ng/mL (0.0-4.0) H 01/30/18 Unknown CK-MB (CK-2) Rel Index 0.4 (0-4) 01/30/18 Unknown Troponin T < 0.010 ng/mL (0.00-0.029) 01/30/18 Unknown NT-Pro-B Natriuret Pep 19.03 pg/mL (0-450) 01/30/18 Unknown Triglycerides 71 mg/dL (2-149) 01/31/18 05:38 Cholesterol 141 mg/dL (50-199) 01/31/18 05:38 LDL Cholesterol Direct 79 mg/dL (50-130) 01/31/18 05:38 HDL Cholesterol 68 mg/dL (40-59) H 01/31/18 05:38 Cholesterol/HDL Ratio 2.07 % 01/31/18 05:38 Urine Opiates Screen Presumptive negative 01/30/18 12:42 Urine Methadone Screen Presumptive negative 01/30/18 12:42 Ur Barbiturates Screen Presumptive negative 01/30/18 12:42 Ur Phencyclidine Scrn Presumptive negative 01/30/18 12:42 Ur Amphetamines Screen Presumptive negative 01/30/18 12:42 U Benzodiazepines Scrn Presumptive negative 01/30/18 12:42 Urine Cocaine Screen Presumptive positive 01/30/18 12:42 U Marijuana (THC) Screen Presumptive negative 01/30/18 12:42 Drugs of Abuse Note Disclamer 01/30/18 12:42
--- NOTE | 2018-02-01 16:01 | Magnetic Resonance Report ---
FINAL REPORT EXAM: MR CERVICAL SPINE WO CON HISTORY: left side weakness TECHNIQUE: Multiplanar MRI of cervical spine. No contrast administered. PRIORS: None. FINDINGS: No loss of height or gross malalignment of cervical vertebral bodies. Cervical spinal cord has normal contour and signal intensity. No cerebellar tonsillar herniation. C2-C3: No apparent disc bulge or protrusion. No significant central spinal stenosis or neural foraminal narrowing. C3-C4: No apparent disc bulge or protrusion. No significant central spinal stenosis or neural foraminal narrowing. C4-C5: Small disc-osteophyte complex, mildly eccentric to the right, and mild right uncovertebral arthrosis. Mild central spinal canal and right neural foraminal narrowing. Left neural foramen grossly patent. C5-C6: No apparent disc bulge or protrusion. No significant central spinal stenosis or neural foraminal narrowing. C6-C7: No apparent disc bulge or protrusion. No significant central spinal stenosis or neural foraminal narrowing. C7-T1: No apparent disc bulge or protrusion. No significant central spinal stenosis or neural foraminal narrowing. IMPRESSION: 1. Degenerative disc disease and spondylosis in the C4-5 level. Please see above for details at individual levels. 2. No significant central spinal canal compromise.
[2018-02-02] MEDS: ASPIRIN PO SCH (11:08)
[2018-02-02] MEDS: AUGMENTIN 875 MG PO SCH (11:08)
--- NOTE | 2018-02-02 11:41 | Progress Note ---
Assessment and Plan 1. Acute onset left low face dropping, left side weakness and numbness. Brain MRI without contrast and brain MRA negative. Probably TIA. 2. Dislipidemia. Statin. 3. Echo, EF 50-55%. Pending carotid Doppler. 4. Cervical spinal MRI, DDD. Out patient orthopaedic or neurosurgery consult. 5. His fiance noted that he had left leg twitching. Seizure as differential. Pending EEG. 6. OT/PT, rehab and speech pathology. 7. Plan discussed with him. 8. Will follow up with you PRN. 9. If D/C, F/U with neurology in 4-6 months. Subjective Date of service: 02/02/18 Principal diagnosis: left side weakness. Interval history: Left side weakness improved. Objective - Vital Sign Vital Signs - 12hr 02/02/18 07:57 Temperature 98.6 F Pulse Rate 77 Respiratory 18 Rate Blood Pressure 103/66 O2 Sat by Pulse 98 Oximetry - Respiratory Respiratory: lungs clear, normal breath sounds - Cardiovascular Cardiovascular: regular rate, no murmurs - Gastrointestinal Gastrointestinal: soft, non-tender - Neurologic Cranial nerve examination: PERRL, EOMI, intact Speech examination: intact Detailed motor examination: other (Left upper 4/5, rest 5/5.) Reflex and gait examination: intact Reflexes: 2+: ankle, bicep, knee, tricep - Psychiatric Psychiatric: mood/affect appropriate - Laboratory Findings CBC and BMP: 01/30/18 Unknown 01/30/18 Unknown Abnormal Lab Findings: Abnormal Labs 01/30/18 01/30/18 01/30/18 Unknown Unknown Unknown RDW 13.0 L [place] % (Auto) 13.3 H Eos % (Auto) 14.7 H Eos # 0.7 H Seg Neutrophils % 39.0 L Sodium 136 L Potassium 3.4 L Chloride 96.9 L BUN 8 L Total Creatine Kinase 970 H CK-MB (CK-2) 4.6 H HDL Cholesterol 01/31/18 05:38 RDW [place] % (Auto) Eos % (Auto) Eos # Seg Neutrophils % Sodium Potassium Chloride BUN Total Creatine Kinase CK-MB (CK-2) HDL Cholesterol 68 H
--- NOTE | 2018-02-02 13:15 | Discharge Summary ---
Providers - Providers Date of Admission: 01/30/18 17:20 Date of discharge: 02/02/18 Attending physician: CRISTIANE PAZ 01/30/18 14:06 Occupational Therapy Evaluate and Treat [CONS] Routine Comment: Reason For Exam: Neuro deficits Physical Therapy Evaluation and Treat [CONS] Routine Comment: Reason For Exam: Neuro deficits 01/30/18 14:07 Speech Therapy Evaluation and Treat [CONS] Routine Reason For Exam: swallow eval 01/30/18 17:20 Occupational Therapy Evaluate and Treat [CONS] Routine Comment: Reason For Exam: Neuro deficits Physical Therapy Evaluation and Treat [CONS] Routine Comment: Reason For Exam: Neuro deficits 01/31/18 12:07 Consult to Physician [CONS] Routine Comment: Consulting Provider: SETH TORRES Physician Instructions: Reason For Exam: rectal bleeding 01/31/18 12:32 Consult to Physician [CONS] Routine Comment: Consulting Provider: EFREN ZAVALA Physician Instructions: Reason For Exam: CVA/ Lt weakness Primary care physician: PROJECT SCHEDULER Hospitalization Condition: Stable Disposition: DC-01 TO HOME OR SELFCARE Time spent for discharge: 32 min Core Measure Documentation - Palliative Care Palliative Care/ Comfort Measures: Not Applicable - Core Measures Any of the following diagnoses?: none Exam - Constitutional Vitals: Temp Pulse Resp BP Pulse Ox 98.6 F 77 18 103/66 98 02/02/18 07:57 02/02/18 07:57 02/02/18 07:57 02/02/18 07:57 02/02/18 07:57 General appearance: Present: no acute distress, well-nourished - EENT Eyes: Present: PERRL, EOM intact - Neck Neck: Present: supple, normal ROM - Respiratory Respiratory effort: normal Respiratory: bilateral: diminished, negative: rales, rhonchi, wheezing - Cardiovascular Rhythm: regular Heart Sounds: Present: S1 & S2 - Extremities Extremities: no ischemia, No edema - Abdominal General gastrointestinal: Present: soft, non-tender, non-distended, normal bowel sounds - Integumentary Integumentary: Present: clear, warm - Musculoskeletal Musculoskeletal: strength equal bilaterally, generalized weakness - Psychiatric Psychiatric: appropriate mood/affect, cooperative - Neurologic Neurologic: CNII-XII intact, moves all extremities Plan Activity: no restrictions Diet: low cholesterol Additional Instructions: Smoking cessation counseling done, advised nicotine patch as needed. Strongly advised to quit cocaine use. Advised seat orthopedic surgeon for his shoulder pain and degenerative spine disease. Follow with GI in 1-2 weeks Follow up with: PRIMARY CARE, [Primary Care Provider] - 3-5 Days USHA BARRERA MD [Staff Physician] - 7 Days JAMES NICOLE MD [Staff Physician] - 7 Days SETH TORRES MD [Staff Physician] - 7 Days Prescriptions: Amoxicillin/K Clav Tab [Augmentin 875MG TAB] 1 each PO Q12HR #10 tablet
[2018-02-02 15:46] VITALS: BP 106/69
== END 2018-02-02 17:53 | disposition home or self-care (01) | DRG 69 ==
LOC: ED 10:06 → 4A 17:20 → 3A 01-31 17:56
PROVIDERS: ADMIT Internal Medicine; ATTEND Internal Medicine
DX: G45.9 Transient cerebral ischemic attack, unspecified (principal); K62.5 Hemorrhage of anus and rectum; F14.10 Cocaine abuse, uncomplicated; J45.909 Unspecified asthma, uncomplicated; F17.200 Nicotine dependence, unspecified, uncomplicated; R29.818 Other symptoms and signs involving the nervous system; E78.5 Hyperlipidemia, unspecified; M50.30 Other cervical disc degeneration, unspecified cervical region; Z71.6 Tobacco abuse counseling; Z71.51 Drug abuse counseling and surveillance of drug abuser
CPT/HCPCS: 36415; 70450; 70544; 70551; 71045; 72141; 80048; 80061; 80307; 82550; 82553; 82962; 83735; 83880; 84484; 85025; 85610; 85670; 85730; 93005; 93010; 93306; 93880; 95819; A9270-GY; J2997; J7030

== ENCOUNTER 2019-04-02 15:23 | Emergency (ER) | payer OTHER ==
[2019-04-02 16:02] VITALS: BP 115/79
--- NOTE | 2019-04-02 16:12 | Event Note ---
ED Screening Note Date of service: 04/02/19 Time: 15:56 ED Screening Note: 39 y/o male comes in for hand hand injury punched a wall on Tuesday. Now has pain and swelling. PMH asthama: This initial assessment/diagnostic orders/clinical plan/treatment(s) is/are subject to change based on patients health status, clinical progression and re- assessment by fellow clinical providers in the ED. Further treatment and workup at subsequent clinical providers discretion. Patient/guardian urged not to elope from the ED as their condition may be serious if not clinically assessed and managed. Initial orders include:
--- NOTE | 2019-04-02 16:47 | XRay Report ---
RIGHT HAND 3 VIEWS. INDICATION / CLINICAL INFORMATION: rt hand injury COMPARISON: None available. FINDINGS: BONES / JOINT(S): No acute fracture or subluxation. No significant arthritis. SOFT TISSUES: No significant abnormality. ADDITIONAL FINDINGS: None. Signer Name: Gerard Rey MD Signed: 04/02/2019 4:43 PM Workstation Name: [id number]
--- NOTE | 2019-04-02 17:07 | Emergency Department Report ---
Upper Extremity - [facility] Chief Complaint: Extremity Injury, Upper Stated Complaint: RT HAND INJURY Time Seen by Provider: 04/02/19 15:56 Upper Extremity: Right Hand (right hand pain after hitting a wall 2 days ago. Reports pain only with movements and he wants to see if his hand is broken) Occurred When: 2 Days Mechanism: Other (hit objects) Severity: severe (9/10 with movement) Symptoms: Yes Pain with Movement (9/10), No Deformity, No Limited Range of Movement, No Numbness, No Weakness, No Swelling, No Bruising/Ecchymosis, No Laceration or Abrasion Other History: This is a 39-year-old male who reports that he is here to see if his right hand is broken because he hit a wall 2 days ago. Denies any numbness or tingling. Denies any weakness or restriction in movement to any joints of his right upper extremity. ED Review of Systems ROS: Stated complaint: RT HAND INJURY Other details as noted in HPI Constitutional: denies: chills, fever Respiratory: denies: cough, shortness of breath, wheezing Cardiovascular: denies: chest pain, palpitations Gastrointestinal: denies: nausea, vomiting Musculoskeletal: arthralgia. denies: back pain, joint swelling, myalgia Skin: denies: rash Neurological: denies: headache, weakness, numbness, paresthesias ED Past Medical Hx - Past Medical History Previous Medical History?: Yes Hx Congestive Heart Failure: No Hx Diabetes: No Hx Asthma: Yes Hx COPD: No Additional medical history: "blood clots in colon" - Surgical History Past Surgical History?: Yes Additional Surgical History: colonoscopy - Family History Family history: no significant - Social History Smoking Status: Never Smoker Substance Use Type: None - Medications Home Medications: Home Medications Medication Instructions Recorded Confirmed Last Taken Type Albuterol Sulfate [Ventolin HFA] 1 - 2 puff INHALATION Q4H PRN #1 10/22/13 01/30/18 Unknown Rx hfa.[email or web address].ad Amoxicillin/K Clav Tab [Augmentin 1 each PO Q12HR #10 tablet 02/02/18 Unknown Rx 875MG TAB] Amoxicillin/K Clav Tab [Augmentin 1 each PO Q12HR #10 tablet 02/02/18 Unknown Rx 875MG TAB] Aspirin [Aspirin BABY CHEW TAB] 81 mg PO QDAY #30 tab.chew 02/02/18 Unknown Rx Ibuprofen [Motrin] 800 mg PO Q8HR PRN #12 tablet 04/02/19 Unknown Rx Upper Extremity Exam - Exam General: Vital signs noted. No distress. Alert and acting appropriately. This is a 39-year-old male well-nourished well-developed in no acute distress. Head and Torso: No HEENT Abnormality, No Neck Tenderness, No Chest/Lungs Abnormality, No Abdominal Tenderness, No Back Tenderness Shoulder Exam: Yes Normal Range of Motion in Shoulder, No Shoulder Tenderness, No Clavicle Tenderness, No Shoulder Deformity, No AC Joint Tenderness Arm Exam: No Arm/Humerus Tenderness, No Arm Deformity Elbow: Yes Normal Range of Motion in Elbow, No Elbow Tenderness, No Elbow Deformity Forearm: No Forearm Tenderness, No Forearm Deformity, No Pain with Pronation, No Pain with Supination Wrist: Yes Normal ROM in Wrist, No Wrist Tenderness, No Wrist Deformity, No Snuffbox Tenderness, No Pain with Axial Thumb Compression Hand: Yes Hand Tenderness (dorsal aspect of right hand at fourth and fifth metacarpal bone area), Yes Normal ROM in Digit(s), No Hand Deformity, No Digit Tenderness, No Digit(s) Deformity, No Tendon Dysfunction CMS Exam: Yes Normal Distal Pulses (No cce. + 2 pulses in all extremities, no neurovascular compromise), Yes Normal Capillary Refill, Yes Normal Distal Sensation, No Broken Skin ED Course Vital Signs 04/02/19 16:01 Temperature 97.9 F Pulse Rate 78 Respiratory 18 Rate Blood Pressure 115/79 O2 Sat by Pulse 99 Oximetry - Reevaluation(s) Reevaluation #1: 04/02/19 17:40 Patient refused pain medication. X-rays negative for any acute findings ED Medical Decision Making - Radiology Data Radiology results: report reviewed X-ray three-view right hand dictated by radiologist and report reviewed by myself. Please see details below Findings [facility] [address] [place] [address] XRay Report Signed Patient: LEVON TREVINO MR# : [id number] : 1980 Acct:[id number] Age/Sex: 39 / M ADM Date: 04/02/19 Loc: ED Attending Dr: Ordering Physician: MANDI MADDOX Date of Service: 04/02/19 Procedure(s): XR hand 3+V RT Accession Number(s): [id number] cc: MANDI MADDOX Fluoro Time In Minutes: RIGHT HAND 3 VIEWS. INDICATION / CLINICAL INFORMATION: rt hand injury COMPARISON: None available. FINDINGS: BONES / JOINT(S): No acute fracture or subluxation. No significant arthritis. SOFT TISSUES: No significant abnormality. ADDITIONAL FINDINGS: None. Signer Name: Gerard Rey MD Signed: 04/02/2019 4:43 PM Workstation Name: [id number] Transcribed By: ES Dictated By: Gerard Rey MD Electronically Authenticated By: Gerard Rey MD Signed Date/Time: 04/02/191642 DD/ 41 TD/TT: - Medical Decision Making 39-year-old male injured his right hand by hit in the wall and here to be evaluated. Physical finances for tenderness to palpate the dorsal aspect of right hand at fourth and fifth metacarpal bone area otherwise normal. X-ray findings normal. This is communicated to patient. He did not want anything for pain and he just wanted to see if his hand is broken. Patient is in stable condition and discharged home to follow up with his primary care physician in 2- 3 days and to follow up with orthopedic doctor if he continues to have pain. He voiced understanding of the discharge instruction, diagnosis and treatment plan. - Differential Diagnosis fracture versus dislocation, contusion, MSK pain Critical care attestation.: If time is entered above; I have spent that time in minutes in the direct care of this critically ill patient, excluding procedure time. ED Disposition Clinical Impression: Right hand pain Disposition: DC-01 TO HOME OR SELFCARE Is pt being admited?: No Does the pt Need Aspirin: No Condition: Stable Instructions: Arthralgia (ED), RICE Therapy (ED) Additional Instructions: Please follow. Primary care physician follow-up visit hand injury and also follow up with orthopedic doctor as needed if he continues to have hand pain Take Motrin as prescribed for Pain please take this medication with food as it causes upset stomach If condition worsens, return to the emergency room Referrals: [facility] [Outside] - 2-3 Days CESIA BLUNT MD [Staff Physician] - 2-3 Days JAMES NICOLE MD [Staff Physician] - 2-3 Days Forms: Work/School Release Form(ED)
== END 2019-04-02 17:53 | disposition home or self-care (01) ==
LOC: ED 15:23
DX: S69.91XA Unspecified injury of right wrist, hand and finger(s), initial encounter (principal); J45.909 Unspecified asthma, uncomplicated; Z79.899 Other long term (current) drug therapy; W22.01XA Walked into wall, initial encounter; Y93.89 Activity, other specified; Y92.89 Other specified places as the place of occurrence of the external cause; Y99.8 Other external cause status

== ENCOUNTER 2019-12-10 00:18 | Emergency (ER) | payer OTHER ==
--- NOTE | 2019-12-10 02:00 | XRay Report ---
LEFT FOOT 3 VIEWS 0120 INDICATION: fall, pain COMPARISON: None available. FINDINGS: Mild inferior calcaneal spurring is noted. Lucency is seen at the base of the fourth metata rsal of concern for a nondisplaced and nonangulated fracture. No dislocation is seen. No other fractu res are noted. LEFT ANKLE 4 VIEWS 0118 INDICATION: fall, pain COMPARISON: None available. FINDINGS: Lateral soft tissue swelling is seen. No ankle fractures or dislocations are noted. Note th at the lateral view given appears to be a duplicate of the lateral foot image and not a true lateral ankle dedicated image. Signer Name: Lanre Hall MD Signed: 12/10/2019 1:56 AM Workstation Name: [id number]
[2019-12-10] MEDS ORDERED: HYDROcodone/ACETAMINOPHEN 5-325 MG TAB PO ONE (02:09)
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
[2019-12-10 03:12] VITALS: BP 122/68
== END 2019-12-10 03:13 | disposition home or self-care (01) ==
LOC: ED 00:18
DX: S92.345A Nondisplaced fracture of fourth metatarsal bone, left foot, initial encounter for closed fracture (principal); J45.909 Unspecified asthma, uncomplicated; Z79.899 Other long term (current) drug therapy; Z86.73 Personal history of transient ischemic attack (TIA), and cerebral infarction without residual deficits; Z98.890 Other specified postprocedural states; W17.89XA Other fall from one level to another, initial encounter; Y93.89 Activity, other specified; Y92.89 Other specified places as the place of occurrence of the external cause; Y99.8 Other external cause status

== ENCOUNTER 2022-01-30 18:40 | Observation (INO) | payer BC, OTHER ==
--- NOTE | 2022-01-30 19:21 | Consultation ---
History of Present Illness Consult date: 01/30/22 History of present illness: [facility] Consult Note # Demographics Consult Type: Acute Stroke Level 1 (0-4.5 hrs) Patient Location: Emergency Room First Name: Hudson Last Name: Anselmo Date of : 1980 Age: 41 Gender: Male Facility: [facility] Time of Initial Page (Eastern Time): 01/30/2022, 18:58 Time of Return Call (Eastern Time): 01/30/2022, 18:58 # HPI Chief Complaint: weakness (focal) Handedness: Right History: Per ER staff & patient, he reported swelling of his top lip. Then he reported left facial drooping, & left arm & leg weakness. Symptoms started at 3pm. Patient denied history of seizure disorder, loss of consciousness, unilateral convulsions, mouth trauma or sphincter incontinence. Last Known Normal: I have collected independent history specific to time last normal or last known well. We have collaborated with the provider and at this time, we have the most current timeline with the information that is available. 3pm Duration: constant hours Possible Thrombolytic candidate: not on warfarin or NOACs no intracranial hemorrhage history Associated Symptoms: no headache # Scores Time of exam and NIHSS ( Time): 01/30/2022, 19:00 Level of Consciousness 1a: [0] = Alert; keenly responsive LOC Questions 1b: [0] = Answers both questions correctly LOC Commands 1c: [0] = Performs both tasks correctly Best Gaze 2: [0] = Normal Visual 3: [0] = No visual loss Facial Palsy 4: [0] = Normal symmetrical movements Motor Arm Left 5a: [0] = No drift Motor Arm Right 5b: [0] = No drift Motor Leg Left 6a: [0] = No drift Motor Leg Right 6b: [0] = No drift Limb Ataxia 7: [0] = Absent Sensory 8: [0] = Normal Best Language 9: [0] = No aphasia Dysarthria 10: [0] = Normal Extinction and Inattention 11: [0] = No abnormality NIHSS Total: 0 # Exam SBP: 145 DBP: 94 Mental Status: awake alert and oriented x 3 follows commands Language: normal speech Motor: no drift No orbiting observed on forearm roll test. Sensory: normal sensation Cerebellar: normal finger nose # ROS Pulmonary: no shortness of breath Cardiovascular: no chest pain # PMH-FH-SH Past Medical History: asthma TIA Social History: non-smoker Allergies: NKDA # Data Glucose: [address] personally read by me (Eastern Time): 01/30/2022, 19:[address]: no bleed preliminarily reviewed by me, please refer to radiology read for official reading # Assessment Impression: Ischemic Stroke (Acute) # Plan Thrombolytic/Intervention: NOT IV Thrombolysis or IA Intervention candidate Thrombolytic Exclusion (< 3 hour window): family/ patient refusal Thrombolytic Exclusion: After discussing the risks & benefits, the patient elected not to pursue thrombolytic therapy. Intraarterial Exclusion: clinically consistent with small vessel disease Target Blood Pressure: SBP < 220 Labs: B12 CBC comprehensive metabolic panel ESR hemoglobin A1c lipid panel thiamine troponin TSH urine drug screen ua Imaging: (urgency: STAT): CT Angiogram Head and CT Angiogram Neck AND call back with results if abnormal Imaging: (urgency: routine): MRI Brain without contrast Diagnostic Test: echo without bubble study Therapy/Evaluation: PT/OT evaluation Medication: aspirin 81 mg PLUS clopidogrel (Plavix) 75 mg for 21 days, then monotherapy therafter start statin with goal of LDL < 70 DVT Prophylaxis: SCD chemical DVT prophylaxis Other: permissive hypertension telemetry monitoring I have discussed my recommendations with the referring provider Disposition: admit Medications and Allergies Allergies Allergy/AdvReac Type Severity Reaction Status Date / Time No Known Allergies Allergy Unverified 10/22/13 19:57 Home Medications Medication Instructions Recorded Confirmed Last Taken Type Albuterol Sulfate [Ventolin HFA] 1 - 2 puff INHALATION Q4H PRN #1 10/22/13 01/30/18 Unknown Rx hfa.aer.ad Amoxicillin/K Clav Tab [Augmentin 1 each PO Q12HR #10 tablet 02/02/18 Unknown Rx 875MG TAB] Amoxicillin/K Clav Tab [Augmentin 1 each PO Q12HR #10 tablet 02/02/18 Unknown Rx 875MG TAB] Aspirin [Aspirin BABY CHEW TAB] 81 mg PO QDAY #30 tab.chew 02/02/18 Unknown Rx Ibuprofen [Motrin] 800 mg PO Q8HR PRN #12 tablet 04/02/19 Unknown Rx Acetaminophen [Tylenol] 650 mg PO Q8HR PRN #20 capsule 12/10/19 Unknown Rx traMADoL [Ultram 50 MG tab] 50 mg PO Q6HR PRN #10 tablet 12/10/19 Unknown Rx Physical Examination - Vital Signs Vital Signs: Vital Signs Temp Pulse Resp BP Pulse Ox 98.9 F 104 H 20 135/83 97 01/30/22 18:54 01/30/22 18:54 01/30/22 18:54 01/30/22 18:54 01/30/22 18:54
--- NOTE | 2022-01-30 19:27 | Cat Scan Report ---
CT head/brain wo con INDICATION / CLINICAL INFORMATION: 41 years Male; neuro deficits <6hrs or sx present upon awakening. TECHNIQUE: Routine CT head without contrast. All CT scans at this location are performed using CT dos e reduction for ALARA by means of automated exposure control. COMPARISON: None. FINDINGS: BRAIN / INTRACRANIAL CONTENTS: No acute hemorrhage, mass effect, midline shift, hydrocephalus, or acu te, large territorial infarct. No signs of significant atrophy or chronic infarct. No significant whi te matter abnormality seen. CRANIOCERVICAL JUNCTION: No significant abnormality. ORBITS: No significant abnormality of visualized orbits. SINUSES / MASTOIDS: Moderate opacification of the ethmoid seen. Mild to moderate mucosal thickening s een in the bilateral mastoids and middle ear cavities. No coalescence of air cells seen. No definitiv e air-fluid levels identified. ADDITIONAL FINDINGS: None. IMPRESSION: 1. No focal mass, hemorrhage, hydrocephalus, or acute, large territorial infarct. Signer Name: Cisco Hemphill MD, III Signed: 01/30/2022 7:22 PM Workstation Name: [email or web address] [id number]
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
[2022-01-30 20:14] LABS: Eosinophils # (Auto) 0.4 K/mm3 (0.0-0.4); Eosinophils % (Auto) 10.9 % (0.0-4.3); Hematocrit 41.2 % (35.5-45.6); Hemoglobin 13.9 gm/dl (11.8-15.2); Lymphocytes % (Auto) 26.3 % (13.4-35.0); Mean Corpuscular HGB Conc 34 % (32-34); Mean Corpuscular Volume 97 fl (84-94); Monocytes # (Auto) 0.4 K/mm3 (0.0-0.8); Monocytes % (Auto) 9.3 % (0.0-7.3); Platelet Count 280 K/mm3 (140-440); Red Blood Count 4.27 M/mm3 (3.65-5.03); Red Cell Distribution Width 13.1 % (13.2-15.2)
[2022-01-30 20:25] LABS: INR 0.97 (0.87-1.13); Partial Thromboplastin Time 29.6 Sec. (24.2-36.6)
[2022-01-30 20:27] LABS: BUN/Creatinine Ratio 7; Blood Urea Nitrogen 6 mg/dL (9-20); Calcium 8.5 mg/dL (8.4-10.2); Hemolysis Index 17
--- NOTE | 2022-01-30 20:36 | Cat Scan Report ---
CT angio head INDICATION / CLINICAL INFORMATION: 41 years Male; stroke. TECHNIQUE: Thin cut axial images obtained through the head during IV bolus contrast administration. S agittal, coronal, and 3 plane MIP reconstructions performed by the technologist. NASCET type criteria used evaluate stenoses. Automated exposure control utilized for radiation reduction purposes. . COMPARISON: None available. FINDINGS: INTERNAL CAROTID ARTERIES: No significant narrowing appreciated. VERTEBROBASILAR SYSTEM: No significant narrowing appreciated. DISTAL BRANCHES: Distal branches of the anterior, middle, and posterior cerebral arteries are fairly symmetric in appearance and number. ANEURYSM: None identified. ADDITIONAL FINDINGS: Moderate opacification of the ethmoid seen. Mild to moderate mucosal thickening seen in the left sphenoid sinus, as well as the frontal sinuses. Mild mucosal thickening seen in the maxillary antra. IMPRESSION: 1. No significant abnormality on this CTA of the head. Signer Name: Cisco Hemphill MD, III Signed: 01/30/2022 8:32 PM Workstation Name: [email or web address]
--- NOTE | 2022-01-30 20:49 | Cat Scan Report ---
CT angio neck INDICATION / CLINICAL INFORMATION: 41 years Male; stroke. TECHNIQUE: Thin cut axial images obtained through the head during IV bolus contrast administration. S agittal, coronal, and 3 plane MIP reconstructions performed by the technologist. NASCET type criteria used evaluate stenoses. All CT scans at this location are performed using CT dose reduction for ALAR A by means of automated exposure control. . COMPARISON: None available. FINDINGS: ARCH: Normal aortic arch branching suggested. CAROTID ARTERIES: The visualized common and internal carotid arteries are widely patent. VERTEBRAL ARTERIES: Codominant vertebral system seen. No significant stenosis appreciated. ADDITIONAL FINDINGS: Remainder of the surrounding soft tissues are grossly normal. IMPRESSION: 1. No significant stenosis appreciated on this CTA of the neck. 2. Significant sinus disease noted. Signer Name: Cisco Hemphill MD, III Signed: 01/30/2022 8:45 PM Workstation Name: [email or web address]
[2022-01-30] MEDS ORDERED: diphenhydrAMINE 50 MG/ML VIAL IV ONE (22:03)
[2022-01-30] MEDS ORDERED: methylPREDNISolone Sod Succinate 125 MG/2 ML INJ IV ONE (22:04)
[2022-01-30] MEDS ORDERED: MORPHINE 2 MG/1 ML INJ IV PRN (22:44)
[2022-01-30] MEDS ORDERED: ALBUTEROL 2.5 MG/3 ML NEBU IH PRN (22:44)
[2022-01-30] MEDS ORDERED: MORPHINE 4 MG/1 ML INJ IV PRN (22:44)
[2022-01-30] MEDS ORDERED: ONDANSETRON 4 MG/2 ML INJ IV PRN (22:44)
[2022-01-30] MEDS ORDERED: ACETAMINOPHEN 325 MG TAB PO PRN (22:44)
[2022-01-30] MEDS ORDERED: SODIUM CHLORIDE 0.9% 1000 ML 1,000 ML IV SCH (22:45)
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
[2022-01-31] MEDS: IPRATROPIUM/ALBUTEROL SULFATE 3 ML AMPUL.NEB IH SCH ×3 (03:52→15:04)
[2022-01-31 06:20] LABS: Basophils % (Auto) 0.2 % (0.0-1.8); Eosinophils % (Auto) 0.4 % (0.0-4.3); Hematocrit 46.3 % (35.5-45.6); Hemoglobin 15.9 gm/dl (11.8-15.2); Lymphocytes # (Auto) 0.3 K/mm3 (1.2-5.4); Lymphocytes % (Auto) 9.4 % (13.4-35.0); Mean Corpuscular HGB Conc 35 % (32-34); Mean Corpuscular Volume 96 fl (84-94); Monocytes # (Auto) 0.1 K/mm3 (0.0-0.8); Monocytes % (Auto) 1.8 % (0.0-7.3); Platelet Count 308 K/mm3 (140-440); Red Blood Count 4.83 M/mm3 (3.65-5.03); Red Cell Distribution Width 13.4 % (13.2-15.2)
[2022-01-31 07:07] LABS: BUN/Creatinine Ratio 12; Blood Urea Nitrogen 13 mg/dL (9-20); Calcium 9.3 mg/dL (8.4-10.2); Hemolysis Index 4; LDL Cholesterol,Direct 142 mg/dL (50-130)
[2022-01-31 07:08] LABS: Chol/HDL Ratio 2.18 %; HDL Cholesterol 122 mg/dL (40-59)
[2022-01-31] MEDS: CLOPIDOGREL 75 MG TAB PO SCH (09:16)
[2022-01-31] MEDS: FAMOTIDINE 20 MG TAB PO SCH ×2 (09:16→21:16)
[2022-01-31] MEDS ORDERED: ASPIRIN 325 MG TAB PO SCH ×2 (10:00)
[2022-01-31] MEDS ORDERED: HEPARIN 5,000 UNIT/1 ML VIAL SUB-Q SCH (10:00)
[2022-01-31] MEDS ORDERED: ASPIRIN EC 81 MG TAB PO SCH (10:00)
--- NOTE | 2022-01-31 10:52 | Electrocardiograph Report ---
[facility] Test Date: 2022-01-31 Test Time: 08:07:57 Pat Name: LEVON TREVINO Department: Room: A479 1 Gender: M Cleaning Laborer: RODNEY : 1980 Requested By: PRANAV CAICEDO Order Number: [id number] Reading MD: Jude Mansfield Measurements Intervals [place] Rate: 56 P: 71 RI: 161 QRS: 74 QRSD: 92 T: 68 QT: 437 QTc: 421 Interpretive Statements Sinus rhythm ST segment elevation, consider acute pericarditis, injury or early repolarization No previous ECG available for comparison Electronically Signed On 01-31-2022 10:52:13 EDT by Jude Mansfield
--- NOTE | 2022-01-31 12:06 | Progress Note ---
Assessment and Plan Assessment and plan: #TIA versus CVA work-up CT head noncontrast unremarkable. Unremarkable CT angio head and neck. Patient evaluated by teleneurology in the ED, and the patient was not deemed a candidate for tPA. Patient endorses not being compliant with daily aspirin since original presentation in 2018 due to "not feeling like". Pending MRI brain without to evaluate for possible CVA. Continue aspirin 81 mg daily + Plavix 75 mg daily. Physical therapy consulted; pending recs Lipid panel: Triglycerides 59, total cholesterol 266, LDH 142, HDL 122. Pending hemoglobin A1c and TSH #Left upper lip swelling Continue to monitor no additional interventions at this time #Polysubstance dependence -Patient engages in the following substances: Cocaine -Counseled patient about the importance of cessation of substance abuse. Offered resources to help with quitting. Patient expresses understanding. -Time: +15 mins #Advanced care planning -Disease education conducted, care plan discussed, diagnoses discussed, prognosis discussed, and patient acknowledges understanding with care plan -Time: +30 min Disposition Plan: Continue medical management Total Time Spent with Patient (Minutes): 45 minutes History Interval history: No acute events overnight. Hospitalist Physical - Constitutional Vitals: Temp Pulse Resp BP Pulse Ox 97.5 F L 60 16 115/73 98 01/31/22 08:15 01/31/22 09:14 01/31/22 09:14 01/31/22 08:15 01/31/22 09:16 General appearance: Present: no acute distress, well-nourished - EENT Eyes: Present: PERRL, EOM intact ENT: hearing intact, clear oral mucosa, dentition normal - Neck Neck: Present: supple, normal ROM - Respiratory Respiratory effort: normal Respiratory: bilateral: CTA - Cardiovascular Rhythm: regular Heart Sounds: Present: S1 & S2 - Extremities Extremities: no ischemia, pulses intact, pulses symmetrical, No edema, normal temperature, normal color, Full ROM Peripheral Pulses: within normal limits - Abdominal General gastrointestinal: soft, non-tender, non-distended, normal bowel sounds - Integumentary Integumentary: Present: clear, warm, dry - Psychiatric Psychiatric: appropriate mood/affect, intact judgment & insight, memory intact, cooperative - Neurologic Neurologic: CNII-XII intact, moves all extremities - Allied Health Allied health notes reviewed: nursing HEART Score - HEART Score Troponin: Troponin T < 0.010 ng/mL (0.00-0.029) 01/30/22 08:09 Results - Labs CBC & Chem 7: 01/31/22 05:39 01/31/22 05:39 Labs: Laboratory Last Values WBC 3.2 K/mm3 (4.5-11.0) L 01/31/22 05:39 RBC 4.83 M/mm3 (3.65-5.03) 01/31/22 05:39 Hgb 15.9 gm/dl (11.8-15.2) H 01/31/22 05:39 Hct 46.3 % (35.5-45.6) H 01/31/22 05:39 MCV 96 fl (84-94) H 01/31/22 05:39 MCH 33 pg (28-32) H 01/31/22 05:39 MCHC 35 % (32-34) H 01/31/22 05:39 RDW 13.4 % (13.2-15.2) 01/31/22 05:39 Plt Count 308 K/mm3 (140-440) 01/31/22 05:39 Lymph % (Auto) 9.4 % (13.4-35.0) L 01/31/22 05:39 [place] % (Auto) 1.8 % (0.0-7.3) 01/31/22 05:39 Eos % (Auto) 0.4 % (0.0-4.3) 01/31/22 05:39 Baso % (Auto) 0.2 % (0.0-1.8) 01/31/22 05:39 Lymph # (Auto) 0.3 K/mm3 (1.2-5.4) L 01/31/22 05:39 [place] # (Auto) 0.1 K/mm3 (0.0-0.8) 01/31/22 05:39 Eos # (Auto) 0.0 K/mm3 (0.0-0.4) 01/31/22 05:39 Baso # (Auto) 0.0 K/mm3 (0.0-0.1) 01/31/22 05:39 Seg Neutrophils % 88.2 % (40.0-70.0) H 01/31/22 05:39 Seg Neutrophils # 2.8 K/mm3 (1.8-7.7) 01/31/22 05:39 PT 14.0 Sec. (12.2-14.9) 01/30/22 08:09 INR 0.97 (0.87-1.13) 01/30/22 08:09 APTT 29.6 Sec. (24.2-36.6) 01/30/22 08:09 Thrombin Time 16.3 Sec. (15.1-19.6) 01/30/22 08:09 Sodium 138 mmol/L (137-145) 01/31/22 05:39 Potassium 4.6 mmol/L (3.6-5.0) D 01/31/22 05:39 Chloride 103.2 mmol/L (98-107) 01/31/22 05:39 Carbon Dioxide 22 mmol/L (22-30) 01/31/22 05:39 Anion Gap 17 mmol/L 01/31/22 05:39 BUN 13 mg/dL (9-20) 01/31/22 05:39 Creatinine 1.1 mg/dL (0.8-1.3) 01/31/22 05:39 Estimated GFR > 60 ml/min 01/31/22 05:39 BUN/Creatinine Ratio 12 % 01/31/22 05:39 Glucose 119 mg/dL (75-100) H 01/31/22 05:39 POC Glucose 51 mg/dL (70-105) L 01/30/22 19:16 Hemoglobin A1c 4.7 % (4-6) 01/31/22 07:56 Calcium 9.3 mg/dL (8.4-10.2) 01/31/22 05:39 Troponin T < 0.010 ng/mL (0.00-0.029) 01/30/22 08:09 Triglycerides 59 mg/dL (2-149) 01/31/22 05:39 Cholesterol 266 mg/dL (50-199) H 01/31/22 05:39 LDL Cholesterol Direct 142 mg/dL (50-130) H 01/31/22 05:39 HDL Cholesterol 122 mg/dL (40-59) H 01/31/22 05:39 Cholesterol/HDL Ratio 2.18 % 01/31/22 05:39 TSH 0.346 mlU/mL (0.270-4.200) 01/31/22 07:56 Free T4 0.72 ng/dL (0.76-1.46) L 01/31/22 07:56 [place]/IV: Voiding Method Toilet Active Medications - Current Medications Current Medications: Generic Name Dose Route Start Last Admin Trade Name Freq PRN Reason Stop Dose Admin Acetaminophen 650 mg 01/30/22 22:44 Acetaminophen 325 Mg Tab PO Q4H PRN Pain MILD(1-3)/Fever >100.5/GARCIA Albuterol 2.5 mg 01/30/22 22:44 Albuterol 2.5 Mg/3 Ml Nebu IH Q3HRT PRN Shortness Of Breath Albuterol/Ipratropium 1 ampul 01/31/22 02:00 01/31/22 09:14 Ipratropium/Albuterol Sulfate 3 Ml Ampul.Neb IH 1 ampul Q6HRT JOHN Administration Aspirin 81 mg 01/31/22 10:00 01/31/22 09:16 Aspirin Ec 81 Mg Tab PO 81 mg QDAY JOHN Administration Atorvastatin Calcium 40 mg 01/31/22 22:00 Atorvastatin 40 Mg Tab PO QHS JOHN Clopidogrel Bisulfate 75 mg 01/31/22 10:00 01/31/22 09:16 Clopidogrel 75 Mg Tab PO 75 mg QDAY JOHN Administration Famotidine 20 mg 01/31/22 10:00 01/31/22 09:16 Famotidine 20 Mg Tab PO 20 mg BID JOHN Administration Heparin Sodium (Porcine) 5,000 unit 01/31/22 14:00 Heparin 5,000 Unit/1 Ml Vial SUB-Q Q8HR JOHN Morphine Sulfate 2 mg 01/30/22 22:44 Morphine 2 Mg/1 Ml Inj IV Q4H PRN Pain, Moderate (4-6) Morphine Sulfate 4 mg 01/30/22 22:44 Morphine 4 Mg/1 Ml Inj IV Q4H PRN Pain , Severe (7-10) Ondansetron HCl 4 mg 01/30/22 22:44 Ondansetron 4 Mg/2 Ml Inj IV Q8H PRN Nausea And Vomiting Sodium Chloride 10 ml 01/31/22 10:00 01/31/22 09:16 Sodium Chloride 0.9% 10 Ml Flush Syringe IV 10 ml BID JOHN Administration Sodium Chloride 10 ml 01/30/22 22:44 Sodium Chloride 0.9% 10 Ml Flush Syringe IV PRN PRN LINE FLUSH
[2022-01-31] MEDS: HEPARIN 5,000 UNIT/1 ML VIAL SUB-Q SCH ×2 (14:46→21:16)
[2022-02-01] MEDS: HEPARIN 5,000 UNIT/1 ML VIAL SUB-Q SCH (05:45)
[2022-02-01] MEDS ORDERED: ASPIRIN EC 81 MG TAB PO SCH (08:30)
[2022-02-01] MEDS: CLOPIDOGREL 75 MG TAB PO SCH (09:25)
[2022-02-01] MEDS: FAMOTIDINE 20 MG TAB PO SCH (09:25)
[2022-02-01 09:26] VITALS: BP 128/87
[2022-02-01] MEDS ORDERED: ASPIRIN EC 325 MG TAB PO SCH (10:00)
--- NOTE | 2022-02-01 10:37 | Discharge Summary ---
Providers - Providers Date of Admission: 01/30/22 22:44 Date of discharge: 02/01/22 Attending physician: TIMO COOK MD 01/30/22 22:44 Occupational Therapy Evaluate and Treat [CONS] Routine Comment: Reason For Exam: Neuro deficits Physical Therapy Evaluation and Treat [CONS] Routine Comment: Reason For Exam: Neuro deficits 01/31/22 12:07 Consult to Physician [CONS] Routine Comment: Consulting Provider: JUAN C ALEJANDRO Physician Instructions: Reason For Exam: Stroke workup Primary care physician: SIXTO PALACIO Hospitalization Reason for admission: TIA Condition: Stable Pertinent studies: Reviewed. Procedures: None. Hospital course: Patient is a 41-year-old male past medical history of TIA (2018) and asthma who presented with left-sided facial droop and left sided upper and lower extremity tingling and weakness that started approximately at 3 AM prior to his presentation. The patient endorses being noncompliant with aspirin 81 mg daily since his prior TIA in 2018. In the ED, the patient was found to be hemodynamically stable. Patient underwent CT head noncontrast, CT angio head and neck, and chest x-ray that were found to be unremarkable. The patient received aspirin 325 mg x 1. Patient was not deemed a candidate for tPA. Patient was also initiated on Lipitor 40 mg daily. The patient has since had complete resolution of symptoms suggestive of TIA instead of acute ischemic CVA. Patient was counseled at length about the importance of medication compliance. The patient will be discharging home with aspirin 81 mg daily to be taken lifelong in addition to Plavix 75 mg daily to be taken for 21 days. Patient expressed understanding. Patient is medically clear for discharge. Disposition: 01 HOME / SELF CARE / HOMELESS Final Discharge Diagnosis (Prints w/discharge instructions): TIA, left upper lip swelling, cocaine dependence, asthma Time spent for discharge: 45 min Core Measure Documentation - Palliative Care Palliative Care/ Comfort Measures: Not Applicable - Core Measures Any of the following diagnoses?: none Exam - Constitutional Vitals: Temp Pulse Resp BP Pulse Ox 97.9 F 78 16 128/87 99 02/01/22 09:26 02/01/22 09:22 02/01/22 05:40 02/01/22 09:22 02/01/22 09:22 General appearance: Present: no acute distress, well-nourished - EENT Eyes: Present: PERRL, EOM intact ENT: hearing intact, clear oral mucosa, dentition normal - Neck Neck: Present: supple, normal ROM - Respiratory Respiratory effort: normal Respiratory: bilateral: CTA - Cardiovascular Rhythm: regular Heart Sounds: Present: S1 & S2 - Extremities Extremities: no ischemia, pulses intact, pulses symmetrical, No edema, normal temperature, normal color, Full ROM Peripheral Pulses: within normal limits - Abdominal General gastrointestinal: Present: soft, non-tender, non-distended, normal bowel sounds Male genitourinary: Present: deferred - Rectal Rectal Exam: deferred - Integumentary Integumentary: Present: clear, warm, dry - Musculoskeletal Musculoskeletal: strength equal bilaterally - Psychiatric Psychiatric: appropriate mood/affect, intact judgment & insight, memory intact, cooperative - Neurologic Neurologic: CNII-XII intact, moves all extremities - Allied Health Allied health notes reviewed: nursing Plan Activity: no restrictions Diet: regular Additional Instructions: Patient is a 41-year-old male past medical history of TIA (2017) and asthma who presented with left-sided facial droop and left sided upper and lower extremity tingling and weakness that started approximately at 3 AM prior to his presentation. The patient endorses being noncompliant with aspirin 81 mg daily since his prior TIA in 2018. In the ED, the patient was found to be hemodynamically stable. Patient underwent CT head noncontrast, CT angio head and neck, and chest x-ray that were found to be unremarkable. The patient received aspirin 325 mg x 1. Patient was not deemed a candidate for tPA. Patient was also initiated on Lipitor 40 mg daily. The patient has since had complete resolution of symptoms suggestive of TIA instead of acute ischemic CVA. Patient was counseled at length about the importance of medication compliance. The patient will be discharging home with aspirin 81 mg daily to be taken lifelong in addition to Plavix 75 mg daily to be taken for 21 days. Patient expressed understanding. Patient is medically clear for discharge. Care Plan Goals: Patient is medically clear for discharge. Assessment: Patient is a 41-year-old male past medical history of TIA (2017) and asthma who presented with left-sided facial droop and left sided upper and lower extremity tingling and weakness that started approximately at 3 AM prior to his presentation. The patient endorses being noncompliant with aspirin 81 mg daily since his prior TIA in 2018. In the ED, the patient was found to be hemodynamically stable. Patient underwent CT head noncontrast, CT angio head and neck, and chest x-ray that were found to be unremarkable. The patient received aspirin 325 mg x 1. Patient was not deemed a candidate for tPA. Patient was also initiated on Lipitor 40 mg daily. The patient has since had complete resolution of symptoms suggestive of TIA instead of acute ischemic CVA. Patient was counseled at length about the importance of medication compliance. The patient will be discharging home with aspirin 81 mg daily to be taken lifelong in addition to Plavix 75 mg daily to be taken for 21 days. Patient expressed understanding. Patient is medically clear for discharge. Follow up with: SIXTO PALACIO MD [Primary Care Provider] - 7 Days Prescriptions: AtorvaSTATin [Lipitor] 40 mg PO QHS #30 tablet Aspirin [Aspirin BABY CHEW TAB] 81 mg PO QDAY #30 tab.chew Clopidogrel [Plavix] 75 mg PO QDAY #21 tablet ALBUTEROL NEB's [Proventil 0.083% NEBS] 1 vial IH Q6H PRN #1 vial PRN Reason: Wheezing
== END 2022-02-01 12:46 | disposition home or self-care (01) ==
LOC: ED 18:40 → 4A 22:44 → INTOOBSV 22:44
PROVIDERS: ADMIT Hospitalist; ATTEND Student in an Organized Health Care Education/Training Program
DX: G45.9 Transient cerebral ischemic attack, unspecified (principal); R22.0 Localized swelling, mass and lump, head; T78.40XA Allergy, unspecified, initial encounter; F14.10 Cocaine abuse, uncomplicated; J45.909 Unspecified asthma, uncomplicated; A01 Typhoid and paratyphoid fevers; R29.700 NIHSS score 0; Z86.73 Personal history of transient ischemic attack (TIA), and cerebral infarction without residual deficits; Z79.899 Other long term (current) drug therapy; Z98.890 Other specified postprocedural states; Z79.82 Long term (current) use of aspirin
CPT/HCPCS: 36415; 70450; 70496; 70498; 80048; 80061; 82962; 83036; 84439; 84443; 84484; 85025; 85610; 85670; 85730; 93005; 94640; 96361; 96372; 96374; 96375; 97161; 97165; 99285; G0378; J1200; J1644; J2930; J7030; Q9967